=== PATIENT | male | born 1990 | race Two or more races ===

== ENCOUNTER → 2020-03-16 | Emergency (ER) | payer SELFPAY ==
[~2020-03-16] VITALS: Ht 180.3 cm; Wt 99.8 kg
[~2020-03-16] MED LIST: FLUORESCEIN SOD 1 MG TEST STRIP OP ONE; TETRACAINE HCL 0.5% OPTH(EYE) SOLN 4ML EACHEYE ONE
[2020-03-16 10:38] VITALS: BP 145/85
== END | disposition home or self-care (01) ==
LOC: ER 10:30
DX: S05.01XA Injury of conjunctiva and corneal abrasion without foreign body, right eye, initial encounter (principal); Z77.098 Contact with and (suspected) exposure to other hazardous, chiefly nonmedicinal, chemicals; X58.XXXA Exposure to other specified factors, initial encounter; Y93.89 Activity, other specified; Y92.89 Other specified places as the place of occurrence of the external cause; Y99.8 Other external cause status